=== PATIENT | male | born 1980 | race African-American/Black ===

== ENCOUNTER 2017-07-26 08:53 | Emergency (ER) | payer MEDICAID ==
[~2017-07-26] VITALS: Ht 170.2 cm; Wt 108.9 kg
[~2017-07-26 08:53] MED LIST: IBUPROFEN800 MG ORAL
[2017-07-26] MEDS ORDERED: ABILIFY20 MG ORAL (09:06)
[2017-07-26 09:09] VITALS: BP 127/79
[2017-07-26 09:28] LABS: APPEARANCE,URINE TURBID; BILIRUBIN, URINE NEGATIVE (NEGATIVE); GLUCOSE, URINE (UA) NEGATIVE (NEGATIVE); KETONES,URINE 3+ (NEGATIVE); LEUKOCYTE ESTERASE ,URINE 3+ (NEGATIVE); NITRITE,URINE NEGATIVE (NEGATIVE); PH,URINE 6 (4.5-8.0); PROTEIN,URINE 2+ (NEGATIVE); UROBILINOGEN,URINE 1 MG/DL (0.0-1.0)
[2017-07-26 09:29] LABS: COLOR,URINE YELLOW
--- NOTE | 2017-07-26 09:33 | Emergency Room Report ---
History of Present Illness General Chief Complaint: Male Urogenital Problems Source: Patient Present Illness HPI 36-year-old male no significant past medical history presenting with 2 days of hematuria. Patient states pinkish blood coming from penis, no pain. No dysuria. No fever no chills. He states that this has never happened before he does not take any blood thinners. Denies any recent sexual activity for the last year. Allergies: Coded Allergies: No Known Allergies (Unverified , 07/24/15) Patient History Past Medical History: see triage record Past Surgical History: none Pertinent Family History: none Reviewed Nursing Documentation: PMH: Agreed; PSxH: Agreed Nursing Documentation-PMH Past Medical History: No History, Except For History Of Psychiatric Problem: Yes Review of Systems All Other Systems: negative except mentioned in HPI Physical Exam Vital Signs Date Time Temp Pulse Resp B/P (MAP) Pulse Ox O2 Delivery O2 Flow Rate FiO2 07/26/17 09:03 98.2 108 16 121/76 95 Room Air 98.2 Sp02 EP Interpretation: reviewed, normal General Appearance: normal inspection, well appearing, no apparent distress, alert, GCS 15, non-toxic Head: normocephalic, atraumatic Eyes: bilateral eye normal inspection, bilateral eye PERRL, bilateral eye EOMI ENT: normal ENT inspection, normal pharynx, normal voice, moist mucus membranes Neck: normal inspection, full range of motion, supple Respiratory: normal inspection, lungs clear, normal breath sounds, no respiratory distress, no retraction, no wheezing, speaking full sentences, chest symmetrical Cardiovascular #1: normal inspection, regular rate, rhythm Cardiovascular #2: 2+ radial (R), 2+ radial (L) Gastrointestinal: normal inspection, non tender, soft Genitourinary: no CVA tenderness Musculoskeletal: normal inspection, back normal, normal range of motion, non- tender Neurologic: normal inspection, alert, oriented x3, responsive, motor strength/ tone normal, sensory intact, normal gait, speech normal Psychiatric: normal inspection, judgement/insight normal, memory normal Skin: normal inspection, normal color, no rash, warm/dry, well hydrated, normal turgor Medical Decision Making Diagnostic Impression: Primary Impression: Hematuria Additional Impression: UTI (urinary tract infection) ER Course 36-year-old male with hematuria Well appearing DDX: UTI, STD, patient not having any flank pain or abdominal pain to suggest kidney stones Plan: UA urine culture ER course: Patient has remained stable during ED stay. Nontoxic appearing, has been watching videos on his phone, no active episodes of hematuria and ER Urine not completely positive as UTI however we will discharge with antibiotics and have close PMD follow-up Disposition: Patient is to be discharged to home. Prescriptions given are Keflex Patient is instructed to follow up with their primary care doctor within 5 days. Please note that this Emergency Department Report was dictated using [email or web address]resource development director technology software, occasionally this can lead to erroneous entry secondary to interpretation by the dictation equipment Laboratory Tests Test 07/26/17 09:06 Urine Color Yellow Urine Appearance Turbid Urine pH 6 (4.5-8.0) Urine Specific [place] 1.015 (1.005-1.035) Urine Protein 2+ (NEGATIVE) H Urine Glucose (UA) Negative (NEGATIVE) Urine Ketones 3+ (NEGATIVE) H Urine Occult Blood 4+ (NEGATIVE) H Urine Nitrite Negative (NEGATIVE) Urine Bilirubin Negative (NEGATIVE) Urine Urobilinogen 1 MG/DL (0.0-1.0) H Urine Leukocyte Esterase 3+ (NEGATIVE) H Urine RBC 5-10 /HPF (0 - 0) H Urine WBC 60-80 /HPF (0 - 0) H Urine Squamous Epithelial Cells Occasional /LPF Urine Bacteria Few /HPF (NONE) Last Vital Signs Date Time Temp Pulse Resp B/P (MAP) Pulse Ox O2 Delivery O2 Flow Rate FiO2 07/26/17 09:09 98.2 78 16 127/79 97 Room Air 98.2 Disposition: HOME, SELF-CARE Condition: Improved Scripts Cephalexin* (KEFLEX*) 500 Mg Capsule 500 MG ORAL Q6H for 7 Days, #28 CAP 0 Refills Prov: Amador Olsen M.D. 07/26/17 Amador Olsen M.D. Jul 26, 2017 09:33
[2017-07-26] MEDS ORDERED: KEFLEX500 MG ORAL (09:46)
[2017-07-26 09:50] VITALS: BP 127/79
== END 2017-07-26 09:50 | disposition home or self-care (01) ==
LOC: EMR 09:30
DX: N39.0 Urinary tract infection, site not specified (principal); N31.9 Neuromuscular dysfunction of bladder, unspecified
CPT/HCPCS: 81003; 87086; 87181; 99283

== ENCOUNTER 2017-07-31 19:21 | Emergency (ER) | payer MEDICAID ==
[~2017-07-31] VITALS: Ht 165.1 cm; Wt 108.9 kg
[~2017-07-31 19:21] MED LIST changes: +ABILIFY20 MG ORAL; +KEFLEX500 MG ORAL
[2017-07-31 19:50] VITALS: BP 108/63
--- NOTE | 2017-07-31 19:55 | Emergency Room Report ---
History of Present Illness General Chief Complaint: Male Urogenital Problems Source: Family Member (Alex Knowles) Present Illness HPI 36-year-old male patient presents ER complaining of testicular pain and swelling 3 days. Patient reports previously seen in ER 5 days ago and currently being treated for UTI with Keflex. Patient reports pain is slowly been increasing in severity. Patient denies recent sexual contact, mother reports patient was recently incarcerated and has since been living at home. Denies penile pain or hematuria. Reports testicular swelling. Denies relief of pain with elevation of testicles. Denies rash. denies problems with ejaculation. denies history of trauma. denies nausea, vomiting. Denies fever, chest pain, SOB. (Alex Knowles) Allergies: Coded Allergies: No Known Allergies (Unverified , 07/24/15) Patient History Past Medical History: see triage record Reviewed Nursing Documentation: PMH: Agreed; PSxH: Agreed (Alex Knowles) Review of Systems All Other Systems: negative except mentioned in HPI (Alex Knowles) Physical Exam Vital Signs Date Time Temp Pulse Resp B/P (MAP) Pulse Ox O2 Delivery O2 Flow Rate FiO2 07/31/17 19:47 103.2 119 18 108/63 96 Room Air 103.3 Sp02 EP Interpretation: reviewed, normal General Appearance: well appearing, alert, GCS 15, non-toxic, mild distress Head: normocephalic, atraumatic Eyes: bilateral eye normal inspection, bilateral eye PERRL ENT: hearing grossly normal, normal pharynx, no angioedema, normal voice, TMs + canals normal, uvula midline, moist mucus membranes Neck: full range of motion Respiratory: lungs clear, normal breath sounds, no rhonchi, no respiratory distress, no accessory muscle use, no wheezing, speaking full sentences Cardiovascular #1: regular rate, rhythm, no edema Genitourinary: penis normal - uncircumcised, other - testicular swelling,TTP, negative Prehn sign, no bag of worms feeling Musculoskeletal: back normal, digits/nails normal, gait/station normal, normal range of motion, non-tender Neurologic: alert, oriented x3, responsive, motor strength/tone normal, sensory intact Psychiatric: mood/affect normal Skin: no rash Lymphatic: no adenopathy (Alex Knowles) Medical Decision Making PA Attestation Dr. Doyle is my supervising Physician whom patient management has been discussed with. (Alex Knowles) Diagnostic Impression: Primary Impression: Hydrocele ER Course Pt. presents to the ED c/o testicular pain. Ddx considered but are not limited to testicular torsion, epididymitis, UTI, testicular cyst, varicocele, hydrocele, inguinal hernia. Vital signs: are WNL, pt. is afebrile. Patient is febrile to 102.1 per nurse, will provide medication and continue to monitor. ORDERS: -Scrotal US -UA Morphine and Toradol ER COURSE: Previous UA reviewed , UA results improved since that time. UA shows no nitrites, fewer WBC's than previous visit. Continue with current treatment, followup with primary care doctor, request referral to urology. US testicular shows no torsion, no varicocele, no hernia, positive for hydrocele , per wellfield technician. Informed patient need to followup with urology, may require surgery for treatment in the future. Patient reports feeling better following administration of pain medication. ER precautions, return if worsening of symptoms. Provided patient with Tylenol. Temperature rechecked, 99.6. Patient OK for discharge. DISCHARGE: -RX provided for Tylenol At this time pt. is stable for d/c to home. Patient resting comfortably, in no acute distress, nontoxic appearing, walking without difficulty and drinking water. Will provide printed patient care instructions, and any necessary prescriptions. Care plan and follow up instructions have been discussed with the patient prior to discharge. Followup with PCP in 2-3 days. Followup with urologist. Take medications as directed. Patient questions asked and answered. ER precautions given, patient instructed to return to ER immediately for any new or worsening of symptoms including but not limited to fever, nausea, vomiting, worsening of pain. - Please note that this Emergency Department Report was dictated using [employer] examination clerk technology software, occasionally this can lead to erroneous entry secondary to interpretation by the dictation equipment. Labs Test 07/31/17 20:50 Urine Color Yellow Urine Appearance Clear Urine pH 5 (4.5-8.0) Urine Specific [place] 1.015 (1.005-1.035) Urine Protein 3+ (NEGATIVE) Urine Glucose (UA) Negative (NEGATIVE) Urine Ketones 3+ (NEGATIVE) Urine Occult Blood 2+ (NEGATIVE) Urine Nitrite Negative (NEGATIVE) Urine Bilirubin Negative (NEGATIVE) Urine Urobilinogen Normal MG/DL (0.0-1.0) Urine Leukocyte Esterase 1+ (NEGATIVE) Urine RBC 5-10 /HPF (0 - 0) Urine WBC 2-4 /HPF (0 - 0) Urine Squamous Epithelial Cells None /LPF (NONE/OCC) Urine Bacteria Few /HPF (NONE) (Alex Knowles) CT/MRI/US Diagnostic Results CT/MRI/US Diagnostic Results : Imaging Test Ordered: Testicular US Impression per US wellfield technician: right hydrocele no torsion no hernia right lymph node swollen STATRAD No intratesticular mass lesion or torsion. Small - moderate right hydrocele. (Alex Knowles) Last Vital Signs Date Time Temp Pulse Resp B/P (MAP) Pulse Ox O2 Delivery O2 Flow Rate FiO2 07/31/17 19:47 103.2 119 18 108/63 96 Room Air 103.3 (Alex Knowles) Last Vital Signs Date Time Temp Pulse Resp B/P (MAP) Pulse Ox O2 Delivery O2 Flow Rate FiO2 07/31/17 22:20 99.6 99.6 07/31/17 22:15 104 14 104/69 95 Room Air (Jose Doyle M.D.) Disposition: HOME, SELF-CARE Condition: Stable Scripts Acetaminophen* (TYLENOL EXTRA STRENGTH*) 500 Mg Tablet 500 MG ORAL Q8H PRN for Prn Headache/Temp > 101, #30 TAB 0 Refills Prov: Alex Knowles 07/31/17 Patient Instructions: Hydrocele, Adult Additional Instructions: Followup with primary care provider in 1-3 days. Request referral to urology. Discuss need for surgery at that time. Take medications as directed. Complete full course of abx as instructed at previous visit. Patient questions asked and answered. ER precautions given, patient instructed to return to ER immediately for any new or worsening of symptoms. Alex Knowles Jul 31, 2017 19:55 Jose Doyle M.D. August 02, 2017 16:51
[2017-07-31] MEDS ORDERED: Ketorolac 30mg Inj IM ONE (20:15)
[2017-07-31] MEDS ORDERED: Morphine Sulfate 4mg/ml Inj IM ONE (20:15)
[2017-07-31 21:39] LABS: APPEARANCE,URINE CLEAR; BILIRUBIN, URINE NEGATIVE (NEGATIVE); GLUCOSE, URINE (UA) NEGATIVE (NEGATIVE); KETONES,URINE 3+ (NEGATIVE); LEUKOCYTE ESTERASE ,URINE 1+ (NEGATIVE); NITRITE,URINE NEGATIVE (NEGATIVE); PH,URINE 5 (4.5-8.0); PROTEIN,URINE 3+ (NEGATIVE); UROBILINOGEN,URINE NORMAL MG/DL (0.0-1.0)
[2017-07-31 21:42] LABS: COLOR,URINE YELLOW
[2017-07-31] MEDS ORDERED: TYLENOL EXTRA500 MG ORAL (21:58)
[2017-07-31 22:09] VITALS: BP 104/69
[2017-07-31 22:15] VITALS: BP 104/69
[2017-07-31] MEDS ORDERED: Acetaminophen 500mg (ES) tab ORAL ONE (22:15)
--- NOTE | 2017-08-01 09:38 | Diagnostic Imaging Report ---
Indication:Scrotal pain Technique: Real time grayscale and duplex Doppler imaging of the scrotum performed. Comparison: None Findings: The size, contour, and echogenicitiy of the testis appear normal bilaterally. There is no testicular mass or evidence of torsion. There is good doppler evidence of blood flow within both testes. Epididimi are unremarkable. There is a small right hydrocele. Impression: Small right hydrocele. No evidence of testicular mass or torsion
== END 2017-07-31 22:15 | disposition home or self-care (01) ==
LOC: EMR 20:22
DX: N43.3 Hydrocele, unspecified (principal)
CPT/HCPCS: 76870; 81003; 96372; 99284; J1885; J2270

== ENCOUNTER 2017-08-16 23:09 | Inpatient (IN) | payer MEDICAID ==
[~2017-08-16] VITALS: Ht 167.6 cm; Wt 103.9 kg
[~2017-08-16 23:09] MED LIST changes: +TYLENOL EXTRA500 MG ORAL
[2017-08-16 23:30] VITALS: BP 110/64
[2017-08-17] MEDS ORDERED: Piperacillin/Tazobactam 3.375 GM in NS 110 ML IVPB ONE ×2
[2017-08-17] MEDS ORDERED: Vancomycin 1 GM in NS 275 ML IVPB ONE ×2
[2017-08-17] MEDS ORDERED: Morphine Sulfate 4mg/ml Inj IVP ONE
[2017-08-17 01:17] VITALS: BP 115/70
--- NOTE | 2017-08-17 01:23 | Emergency Room Report ---
History of Present Illness General Chief Complaint: Male Urogenital Problems Source: Patient Present Illness HPI 36-year-old male complains of pain in drainage from right scrotum Currently bothering him for 2 days He had this problem 2-3 times in the past well He is no longer antibiotics He reports it's not his testicle hurts is just the scrotum the pain is severe and nnonradiating Denies fevers Allergies: Coded Allergies: No Known Allergies (Unverified , 07/24/15) Patient History Past Medical History: see triage record Reviewed Nursing Documentation: PMH: Agreed; PSxH: Agreed Review of Systems All Other Systems: negative except mentioned in HPI Physical Exam Vital Signs Date Time Temp Pulse Resp B/P (MAP) Pulse Ox O2 Delivery O2 Flow Rate FiO2 08/16/17 23:12 98.4 101 18 122/77 98 Room Air 98.4 Sp02 EP Interpretation: reviewed, normal General Appearance: no apparent distress, alert, non-toxic Head: normocephalic Eyes: bilateral eye normal inspection, bilateral eye PERRL, bilateral eye EOMI ENT: normal ENT inspection, hearing grossly normal, normal pharynx, no angioedema, normal voice, moist mucus membranes Neck: normal inspection, full range of motion, supple, supple/symm/no masses Respiratory: chest non-tender, lungs clear, normal breath sounds, chest symmetrical, palpation of chest normal Cardiovascular #1: normal peripheral pulses, regular rate, rhythm Cardiovascular #2: 2+ radial (R), 2+ radial (L) Gastrointestinal: normal inspection, non tender, soft, no mass, no guarding, no rebound Rectal: deferred Genitourinary: normal inspection, no CVA tenderness, scrotum normal - Right scrotum superior portion erythema warmth tenderness and open draining purulence Musculoskeletal: back normal, gait/station normal, normal range of motion, non- tender, no calf tenderness Neurologic: alert, responsive, ground host/hostess III-XII nml as tested, motor strength/tone normal, sensory intact, speech normal Psychiatric: judgement/insight normal, memory normal, mood/affect normal Skin: normal color, no rash, warm/dry, normal turgor Lymphatic: no adenopathy Medical Decision Making Diagnostic Impression: Primary Impression: Cellulitis, scrotum ER Course Patient with scrotal cellulitis and open wound, I do not suspect Aldair's gangrene, as there is no crepitus, I also do not suspect closed abscess as there is no open area that is draining purulence versus granulation tissue Patient will be admitted, is already started antibiotics Last Vital Signs Date Time Temp Pulse Resp B/P (MAP) Pulse Ox O2 Delivery O2 Flow Rate FiO2 08/17/17 01:17 98.0 90 16 115/70 98 Room Air 98.0 Disposition: ADMITTED INPATIENT Condition: Stable Signed Out To: Dr. Maza Referrals: NOT CHOSEN IPA/,REFERRING (PCP) ANIA ORTEGA M.D August 17, 2017 01:23
[2017-08-17 01:27] LABS: BASOPHILS % (AUTO) 0.9 % (0.0-2.0); EOSINOPHILS % (AUTO) 1.2 % (0.0-3.0); HEMOGLOBIN 13.8 G/DL (14.2-18.0); MEAN CORPUSCULAR VOLUME 89 FL (80-99); MONOCYTES % (AUTO) 8.9 % (1.0-10.0); NEUTROPHILS % (AUTO) 75.1 % (45.0-75.0); PLATELET COUNT 291 K/UL (150-450); RED CELL DISTRIBUTION WIDTH 12.3 % (11.6-14.8); WHITE BLOOD COUNT 12.7 K/UL (4.8-10.8)
[2017-08-17 01:32] LABS: ANION GAP 10 mmol/L (5-15); BLOOD UREA NITROGEN 17 mg/dL (7-18); CARBON DIOXIDE 25 MMOL/L (21-32); CHLORIDE 105 MMOL/L (98-107); CREATININE 1.3 MG/DL (0.55-1.30); POTASSIUM 4.2 MMOL/L (3.5-5.1); SODIUM 140 MMOL/L (136-145)
[2017-08-17 02:10] VITALS: BP 110/68
[2017-08-17 03:46] VITALS: BP 119/69
[2017-08-17] MEDS: Piperacillin/Tazobactam 3.375 GM in NS 110 ML IVPB SCH ×3 (06:01→23:59)
[2017-08-17] MEDS: Morphine Sulfate 4mg/ml Inj IVP PRN ×5 (06:45→22:29)
[2017-08-17 07:47] LABS: BASOPHILS % (AUTO) 0.4 % (0.0-2.0); EOSINOPHILS % (AUTO) 1.6 % (0.0-3.0); HEMATOCRIT 40.9 % (42.0-52.0); HEMOGLOBIN 13.7 G/DL (14.2-18.0); LYMPHOCYTES % (AUTO) 18.5 % (20.0-45.0); MEAN CORPUSCULAR VOLUME 90 FL (80-99); MONOCYTES % (AUTO) 8.5 % (1.0-10.0); PLATELET COUNT 268 K/UL (150-450); RED BLOOD COUNT 4.56 M/UL (4.70-6.10); RED CELL DISTRIBUTION WIDTH 12.6 % (11.6-14.8); WHITE BLOOD COUNT 9.3 K/UL (4.8-10.8)
[2017-08-17 08:08] VITALS: BP 114/65
[2017-08-17 08:25] LABS: ANION GAP 12 mmol/L (5-15); BLOOD UREA NITROGEN 17 mg/dL (7-18); CALCIUM 8.9 MG/DL (8.5-10.1); CARBON DIOXIDE 22 MMOL/L (21-32); CHLORIDE 107 MMOL/L (98-107); CREATININE 1.2 MG/DL (0.55-1.30); POTASSIUM 3.7 MMOL/L (3.5-5.1); SODIUM 141 MMOL/L (136-145)
[2017-08-17 11:29] VITALS: BP 118/68
[2017-08-17] MEDS: Vancomycin 1gm/D5W 275ml IVPB SCH ×2 (13:20)
--- NOTE | 2017-08-17 14:10 | Diagnostic Imaging Report ---
Indications: With scrotal pain, scrotal abscess Technique: Grayscale and duplex images of the scrotum Comparison: 07/31/2017 Findings: There is marked scrotal wall thickening. The right testicle measures cm in length ill-defined area of mixed echogenicity within the right hemiscrotum measures 4.5 x 2.5 cm. Is unclear whether this represents a testicle largest material within the scrotum. It does demonstrate some arterial flow but does not appear to be hyperemic. The spermatic cord cannot be assessed. The epididymis cannot be identified. These findings are new since the previous exam Small left varicocele. Previously demonstrated hydrocele is not evident The left testicle measures 3.6 cm in length. It demonstrates normal echogenicity and normal Doppler flow. Normal epididymis. There is possible small left varicocele Impression: Marked scrotal wall thickening. Could be on the basis of scrotal cellulitis, versus edema related to hemodynamic causes. Correlate with clinical findings Markedly abnormal right hemiscrotum, with normal testicle is not demonstrated. Echogenicity material within the right hemiscrotum likely represents testicular tissue, but but markedly abnormal appearance could indicate severe inflammation or trauma. Necrosis secondary to torsion also a possibility, although the presence of some Doppler flow makes this less likely. Tumor as etiology is much less likely given normal findings 17 days earlier Findings discussed by phone with Dr. Gray at the time of interpretation
--- NOTE | 2017-08-17 14:12 | Infectious Diseases Prog Note ---
Assessment/Plan Assessment/Plan Full consult to follow: A) 1) right scrotal abscess/cellulitis, sepsis, leukocytosis, sirs 2) allergies - linda sauce, nkda 3) pmh negative o/w 4) sh- + smoker, fh-nc, mar noted 5) d/w RN P) 1) vancomycin and zosyn 2) check labs, cultures 3) surgery evaluation 4) orders entered and noted 5) thank you Subjective Allergies: Uncoded Allergies: linda sauce (Allergy, Intermediate, hives, 08/17/17) Objective Vital Signs Last 24 Hour Vital Signs Date Time Temp Pulse Resp B/P (MAP) Pulse Ox O2 Delivery O2 Flow Rate FiO2 08/17/17 11:29 98.0 95 20 118/68 97 98.0 08/17/17 08:08 97.5 93 20 114/65 97 97.5 08/17/17 03:46 96.6 91 18 119/69 98 96.6 08/17/17 03:46 Room Air 08/17/17 02:10 97.9 88 18 110/68 99 Room Air 97.9 08/17/17 02:00 98.0 90 16 115/70 98 Room Air 98.0 08/17/17 01:32 98.0 08/17/17 01:17 98.0 90 16 115/70 98 Room Air 98.0 08/17/17 00:31 97.9 08/16/17 23:30 97.9 94 16 110/64 98 Room Air 97.9 08/16/17 23:12 98.4 101 18 122/77 98 Room Air 98.4 Height (Feet): 5 Height (Inches): 6.00 Weight (Pounds): 229 Laboratory Tests Test 08/17/17 00:15 08/17/17 06:40 White Blood Count 12.7 K/UL (4.8-10.8) H 9.3 K/UL (4.8-10.8) Red Blood Count 4.60 M/UL (4.70-6.10) L 4.56 M/UL (4.70-6.10) L Hemoglobin 13.8 G/DL (14.2-18.0) L 13.7 G/DL (14.2-18.0) L Hematocrit 41.0 % (42.0-52.0) L 40.9 % (42.0-52.0) L Mean Corpuscular Volume 89 FL (80-99) 90 FL (80-99) Mean Corpuscular Hemoglobin 29.9 PG (27.0-31.0) 30.0 PG (27.0-31.0) Mean Corpuscular Hemoglobin Concent 33.6 G/DL (32.0-36.0) 33.4 G/DL (32.0-36.0) Red Cell Distribution Width 12.3 % (11.6-14.8) 12.6 % (11.6-14.8) Platelet Count 291 K/UL (150-450) 268 K/UL (150-450) Mean Platelet Volume 6.7 FL (6.5-10.1) 6.4 FL (6.5-10.1) L Neutrophils (%) (Auto) 75.1 % (45.0-75.0) H 71.0 % (45.0-75.0) Lymphocytes (%) (Auto) 14.0 % (20.0-45.0) L 18.5 % (20.0-45.0) L Monocytes (%) (Auto) 8.9 % (1.0-10.0) 8.5 % (1.0-10.0) Eosinophils (%) (Auto) 1.2 % (0.0-3.0) 1.6 % (0.0-3.0) Basophils (%) (Auto) 0.9 % (0.0-2.0) 0.4 % (0.0-2.0) Sodium Level 140 MMOL/L (136-145) 141 MMOL/L (136-145) Potassium Level 4.2 MMOL/L (3.5-5.1) 3.7 MMOL/L (3.5-5.1) Chloride Level 105 MMOL/L (98-107) 107 MMOL/L (98-107) Carbon Dioxide Level 25 MMOL/L (21-32) 22 MMOL/L (21-32) Anion Gap 10 mmol/L (5-15) 12 mmol/L (5-15) Blood Urea Nitrogen 17 mg/dL (7-18) 17 mg/dL (7-18) Creatinine 1.3 MG/DL (0.55-1.30) 1.2 MG/DL (0.55-1.30) Estimat Glomerular Filtration Rate > 60 mL/min (>60) > 60 mL/min (>60) Glucose Level 95 MG/DL (74-106) 98 MG/DL (74-106) Calcium Level 9.0 MG/DL (8.5-10.1) 8.9 MG/DL (8.5-10.1) Current Medications Medications (Trade) Dose Ordered Sig/Shoaib Route PRN Reason Start Time Stop Time Status Last Admin Dose Admin Acetaminophen (Tylenol) 650 mg Q6H PRN ORAL Mild Pain/Temp > 100.5 08/17/17 02:45 09/16/17 02:44 Morphine Sulfate (Morphine Sulfate) 2 mg Q4H PRN IVP Severe Pain (Pain Scale 7-10) 08/17/17 02:45 08/24/17 02:44 08/17/17 10:27 Piperacillin Sod/ Tazobactam Sod 3.375 gm/Sodium Chloride 110 ml @ 27.5 mls/hr Q8HR IVPB 08/17/17 06:00 08/24/17 05:59 08/17/17 06:01 Sodium Chloride 1,000 ml @ 75 mls/hr [id number] IV 08/17/17 03:00 09/16/17 02:59 08/17/17 02:54 Vancomycin HCl (Vanco rx to dose) 1 ea DAILY PRN MISC Per rx protocol 08/17/17 02:45 09/16/17 02:44 Vancomycin HCl 1 gm/Dextrose 275 ml @ 183.708 mls/hr Q12H IVPB 08/17/17 13:00 08/22/17 12:59 08/17/17 13:20 APRIL HERNÁNDEZ August 17, 2017 14:12
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
[2017-08-17 15:46] VITALS: BP 131/68
--- NOTE | 2017-08-17 17:45 | Consultation ---
DATE OF CONSULTATION: 08/17/2017 INFECTIOUS DISEASE CONSULTATION CONSULTING PHYSICIAN: Hoa Vogel M.D. ATTENDING/REFERRING PHYSICIAN: Elham Gray M.D. REASON FOR CONSULTATION: Right scrotal abscess with cellulitis. CHIEF COMPLAINT: The patient's chief complaint in the hospital is right scrotal cellulitis and abscess and infected wound, it looks like. HISTORY OF PRESENT ILLNESS: This is a 36-year-old male, who comes in to [facility]. He said that over the last day, but now it is unclear if it is longer that he had pain in the right scrotal area. Clinically, the patient has a draining wound, which likely is an abscess. He has cellulitis also, but also could have an infected wound. The patient denies any urethral discharge. Infectious Disease consultation is requested. The patient will be placed on vancomycin and Zosyn for polymicrobial coverage including Staph aureus and gram negatives. Case was discussed with Niurka Arzate, nurse practitioner for Dr. Gray and surgery evaluation will be obtained. Cultures pending at this time. MAR was noted. Orders were noted. Notes and records were reviewed. The patient also looks like he could have sepsis with an elevated white count and SIRS criteria and tachycardia. PAST MEDICAL HISTORY: Otherwise negative. No history of diabetes or hypertension. MEDICATIONS: Prior to admission, he is on cephalexin, , acetaminophen, and ibuprofen. Upon reviewing the MAR, he is on the following medications. He is on vancomycin, Zosyn, sodium chloride, acetaminophen, and morphine. ALLERGIES: Teriyaki sauce. No known drug allergies. SOCIAL HISTORY: Positive for smoking. No alcohol or drug abuse. FAMILY HISTORY: Noncontributory. REVIEW OF SYSTEMS: CONSTITUTIONAL: No fever, chills, night sweats, weight loss mentioned. HEAD AND NECK: No head pain or neck pain. No thrush, dysphagia, or sinus tenderness. No change in vision. CARDIAC: No chest pain or palpitations. PULMONARY: No shortness of breath, hemoptysis, or secretions. GASTROINTESTINAL: No nausea, vomiting, or diarrhea. GENITOURINARY: No Islas. PULMONARY: No congestion or shortness of breath. SKIN: No rash. NEUROLOGIC: No seizures mentioned. GENITOURINARY: He has had this right scrotal pain, swelling, and draining wound. The patient also denies any dysuria or urethral discharge. PHYSICAL EXAMINATION: VITAL SIGNS: Temperature is 98.0, pulse rate is 95, respiratory rate 20, blood pressure 118/68, and saturation 97%. Heart rate has been as high as 101. GENERAL: Alert and responsive, in no acute distress. HEAD AND NECK: Oral exam, no thrush. Eye exam, no icterus. Neck is supple. No JVD. Normocephalic. No facial droop. No neck stiffness. LUNGS: Clear bilaterally. No rhonchi or rales. HEART: Regular. No obvious gallop or murmur. ABDOMEN: Soft. Positive bowel sounds. Nontender. NEUROLOGIC: He is alert, oriented, and responsive. Intact and nonfocal. SKIN: No rash. MUSCULOSKELETAL: No effusion. Legs are without cellulitis. PERIPHERAL VASCULAR: No gangrene. GENITOURINARY: No Islas. No CVA tenderness. LINE SITES: Without phlebitis. GENITOURINARY: Right scrotal area has a draining wound what looks like he is expressing pus from the abscess with secondary to cellulitis and tenderness on palpation. LABORATORY DATA: Laboratory data is as follows. White count on admission 12.7, white count now is 9.3, and hemoglobin 13.7. Creatinine is normal at 1.2. Wound culture on the right scrotal area is pending. Testicular ultrasound showed marked scrotal wall thickening consistent with cellulitis or edema of some type. Abnormal right hemiscrotum with normal testicle not demonstrated. It could be trauma or severe inflammation. Necrosis secondary to torsion is also a possibility. ASSESSMENT AND PLAN: 1. The patient has what looks like right scrotal abscess and cellulitis with sepsis, elevated white count, and systemic inflammatory response syndrome criteria. Ultrasound shows testicular abnormality. It is unclear if this patient also has underlying epididymitis or orchitis. Because of his age, I would also add doxycycline for chlamydia coverage. The Zosyn should have gonorrhea coverage. We will continue Zosyn, vancomycin, and doxycycline and check culture of the wound. I would also consider Urology evaluation to evaluate for any surgical debridement if needed. It clinically does not seem Aldair's gangrene at this time. The patient is nontoxic and clinically does not seem to be Aldair's gangrene. There is no necrotic tissue seen. Continue Zosyn, doxycycline, and vancomycin. Check cultures. Urology evaluation will be obtained. Case was discussed with Niurka Arzate, nurse practitioner for Dr. Gray. 2. No significant past medical history such as diabetes, hypertension, or hyperlipidemia. 3. Allergies to teriyaki sauce. 4. Social history is positive for smoking. 5. Family history is noncontributory. 6. MAR was noted. 7. Case was discussed with RN. 8. Case was discussed with the patient. 9. Notes and records were noted. 10. Continue treatment per primary consultants. Hoa Vogel M.D. DR: TEJAL JOB#: [id number] CC:
[2017-08-18] VITALS: BP 118/62
[2017-08-18] MEDS: Morphine Sulfate 4mg/ml Inj IVP PRN ×5 (02:29→20:34)
[2017-08-18] MEDS: Vancomycin 1gm/D5W 275ml IVPB SCH ×2 (02:56)
[2017-08-18 04:00] VITALS: BP 122/63
[2017-08-18] MEDS: Piperacillin/Tazobactam 3.375 GM in NS 110 ML IVPB SCH ×3 (06:52→22:33)
[2017-08-18 08:00] VITALS: BP 100/67
[2017-08-18 08:10] LABS: BASOPHILS % (AUTO) 0.5 % (0.0-2.0); EOSINOPHILS % (AUTO) 2.8 % (0.0-3.0); HEMATOCRIT 42.7 % (42.0-52.0); HEMOGLOBIN 14.2 G/DL (14.2-18.0); LYMPHOCYTES % (AUTO) 26.4 % (20.0-45.0); MEAN CORPUSCULAR VOLUME 89 FL (80-99); MONOCYTES % (AUTO) 13.5 % (1.0-10.0); NEUTROPHILS % (AUTO) 56.9 % (45.0-75.0); PLATELET COUNT 251 K/UL (150-450); RED BLOOD COUNT 4.77 M/UL (4.70-6.10); RED CELL DISTRIBUTION WIDTH 12.4 % (11.6-14.8); WHITE BLOOD COUNT 7.3 K/UL (4.8-10.8)
[2017-08-18 08:30] LABS: ANION GAP 8 mmol/L (5-15); BLOOD UREA NITROGEN 13 mg/dL (7-18); CALCIUM 8.7 MG/DL (8.5-10.1); CARBON DIOXIDE 25 MMOL/L (21-32); CHLORIDE 106 MMOL/L (98-107); CREATININE 1.1 MG/DL (0.55-1.30); SODIUM 139 MMOL/L (136-145)
[2017-08-18 12:00] VITALS: BP 105/63
--- NOTE | 2017-08-18 14:41 | Infectious Diseases Prog Note ---
Assessment/Plan Assessment/Plan A) 1) right scrotal abscess/cellulitis, ? epididymitis/orchaitis, ? right testicular abscess, sepsis, leukocytosis, sirs - wound culture with gram negative growing so far - clinically about the same - leukocytosis and fevers improved 2) allergies - teriyaki sauce, nkda 3) pmh negative o/w 4) sh- + smoker, fh-nc, mar noted 5) d/w RN P) 1) vancomycin and zosyn 2) check labs, check final wound culture 3) surgery evaluation noted, urology evaluation pending, may need debridement 4) orders entered and noted 5) will f/u, d/w general surgery Subjective Constitutional: Denies: fever HEENT: Denies: congestion Respiratory: Denies: shortness of breath Cardiovascular: Denies: chest pain Gastrointestinal/Abdominal: Denies: nausea Genitourinary: Reports: other - + right scrotal pain; Denies: dysuria, hematuria Neurologic: Denies: headache Psychiatric: Denies: depression Skin: Denies: rash Hematologic: Denies: bleeding Musculoskeletal: Denies: pain Allergies: Uncoded Allergies: teriyaki sauce (Allergy, Intermediate, hives, 08/17/17) Objective Vital Signs Last 24 Hour Vital Signs Date Time Temp Pulse Resp B/P (MAP) Pulse Ox O2 Delivery O2 Flow Rate FiO2 08/18/17 12:00 98.0 84 20 105/63 98 98.0 08/18/17 11:20 97.4 08/18/17 10:50 97.4 08/18/17 08:00 97.4 72 20 100/67 98 97.4 08/18/17 04:00 97.7 75 20 122/63 98 97.7 08/18/17 00:00 98.1 74 20 118/62 100 98.1 08/17/17 20:00 22 Room Air 08/17/17 15:46 97.5 87 20 131/68 99 97.5 Height (Feet): 5 Height (Inches): 6.00 Weight (Pounds): 229 General Appearance: no acute distress HEENT: normocephalic, atraumatic, anicteric, mucous membranes moist, EOMI, pharynx normal, supple, no JVD Respiratory/Chest: lungs clear, normal breath sounds, no respiratory distress, no accessory muscle use Cardiovascular: normal rate, regular rhythm, no gallop/murmur, no JVD Abdomen: normal bowel sounds, soft, non tender, no organomegaly, non distended Genitourinary: other - + right scrotal swelling, pain and drainage Extremities: no cyanosis Skin: no rash Neurologic/Psychiatric: learning strategist II-XII grossly normal, alert, oriented x 3, responsive Lymphatic: no neck adenopathy Musculoskeletal: no effusion Objective Testicular US - Impression: Marked scrotal wall thickening. Could be on the basis of scrotal cellulitis, versus edema related to hemodynamic causes. Correlate with clinical findings Markedly abnormal right hemiscrotum, with normal testicle is not demonstrated. Echogenicity material within the right hemiscrotum likely represents testicular tissue, but but markedly abnormal appearance could indicate severe inflammation or trauma. Necrosis secondary to torsion also a possibility, although the presence of some Doppler flow makes this less likely. Tumor as etiology is much less likely given normal findings 17 days earlier Microbiology Date/Time Source Procedure Growth Status 08/17/17 03:00 Other Gram Stain - Final Resulted 08/17/17 03:00 Wound Culture - Preliminary Gram Negative Bacillus 1 Resulted Laboratory Tests Test 08/18/17 06:50 08/18/17 12:15 White Blood Count 7.3 K/UL (4.8-10.8) Red Blood Count 4.77 M/UL (4.70-6.10) Hemoglobin 14.2 G/DL (14.2-18.0) Hematocrit 42.7 % (42.0-52.0) Mean Corpuscular Volume 89 FL (80-99) Mean Corpuscular Hemoglobin 29.8 PG (27.0-31.0) Mean Corpuscular Hemoglobin Concent 33.3 G/DL (32.0-36.0) Red Cell Distribution Width 12.4 % (11.6-14.8) Platelet Count 251 K/UL (150-450) Mean Platelet Volume 6.6 FL (6.5-10.1) Neutrophils (%) (Auto) 56.9 % (45.0-75.0) Lymphocytes (%) (Auto) 26.4 % (20.0-45.0) Monocytes (%) (Auto) 13.5 % (1.0-10.0) H Eosinophils (%) (Auto) 2.8 % (0.0-3.0) Basophils (%) (Auto) 0.5 % (0.0-2.0) Sodium Level 139 MMOL/L (136-145) Potassium Level 4.0 MMOL/L (3.5-5.1) Chloride Level 106 MMOL/L (98-107) Carbon Dioxide Level 25 MMOL/L (21-32) Anion Gap 8 mmol/L (5-15) Blood Urea Nitrogen 13 mg/dL (7-18) Creatinine 1.1 MG/DL (0.55-1.30) Estimat Glomerular Filtration Rate > 60 mL/min (>60) Glucose Level 88 MG/DL (74-106) Calcium Level 8.7 MG/DL (8.5-10.1) Vancomycin Level Trough 10.9 ug/mL (5.0-12.0) Current Medications Medications (Trade) Dose Ordered Sig/Shoaib Route PRN Reason Start Time Stop Time Status Last Admin Dose Admin Acetaminophen (Tylenol) 650 mg Q6H PRN ORAL Mild Pain/Temp > 100.5 08/17/17 02:45 09/16/17 02:44 08/18/17 03:51 Doxycycline Hyclate 100 mg/ Dextrose 100 ml @ 100 mls/hr Q12HR IVPB 08/17/17 21:00 08/24/17 20:59 08/18/17 10:53 Morphine Sulfate (Morphine Sulfate) 2 mg Q4H PRN IVP Severe Pain (Pain Scale 7-10) 08/17/17 02:45 08/24/17 02:44 08/18/17 10:50 Piperacillin Sod/ Tazobactam Sod 3.375 gm/Sodium Chloride 110 ml @ 27.5 mls/hr Q8HR IVPB 08/17/17 06:00 08/24/17 05:59 08/18/17 06:52 Sodium Chloride 1,000 ml @ 75 mls/hr [id number] IV 08/17/17 03:00 09/16/17 02:59 08/18/17 06:52 Vancomycin HCl (Vanco rx to dose) 1 ea DAILY PRN MISC Per rx protocol 08/17/17 02:45 09/16/17 02:44 Vancomycin HCl/ Dextrose 250 ml @ 166.667 mls/hr Q12H IVPB 08/18/17 15:00 08/23/17 14:59 APRIL HERNÁNDEZ August 18, 2017 14:41
[2017-08-18] MEDS ORDERED: Tubing IV Secondary IV ONE ×2 (15:12→15:18)
--- NOTE | 2017-08-18 15:46 | General Progress Note ---
Assessment/Plan Problem List: (1) Sepsis ICD Codes: A41.9 - Sepsis, unspecified organism SNOMED: 25904606 (2) Scrotal abscess ICD Codes: N49.2 - Inflammatory disorders of scrotum SNOMED: 48480217 Status: stable, progressing Assessment/Plan ID (Dr. Umana), general surgery (Dr. Arenas), urology (Dr. So) consulted. appreciate rec's No surgical interventions at this time. IV vancomycin and zosyn Trend CBC. 11 --> 7 F/u blood cx, urine cx, wound cx Testicular ultrasound done on 08/17 showing scrotal cellulitis with abnormal right hemiscrotum. necrosis 2/2 torsion a possibility but doppler flow presence makes it less likely. Tumor as etiology less likely given normal findings on testicular ultrasound 2 weeks prior. Pain control and supportive care IVF DVT Prophylaxis: SCD Code Status: Full Hospital Classification Declaration: Based on this initial evaluation, and depending on the patient's clinical course, I anticipate that this patient will require hospitalization for 3-4 days for scrotal abscess and close respiratory/ hemodynamic monitoring. Disposition: Once the patient is stable to leave the hospital, I anticipate the patient will likely be discharged to the following environment: home with HH I spent 33 minutes on this patient's case, and 19 minutes were dedicated to counseling and/or care coordination. Discussed with patient/family, nursing staff, SW/CM, ID, general surgery, and urology regarding clinical status, treatment course, and disposition planning. Time of note may not reflect time of encounter. Subjective Date patient seen: August 18, 2017 Time patient seen: 15:43 Allergies: Uncoded Allergies: teriyaki sauce (Allergy, Intermediate, hives, 08/17/17) Subjective - doing better today - WBC trending down - AF, HDS - reports pain to scrotal region improved - seen by ID and general surgery Objective Last 24 Hour Vital Signs Date Time Temp Pulse Resp B/P (MAP) Pulse Ox O2 Delivery O2 Flow Rate FiO2 08/18/17 12:00 98.0 84 20 105/63 98 98.0 08/18/17 11:20 97.4 08/18/17 10:50 97.4 08/18/17 08:00 97.4 72 20 100/67 98 97.4 08/18/17 04:00 97.7 75 20 122/63 98 97.7 08/18/17 00:00 98.1 74 20 118/62 100 98.1 08/17/17 20:00 22 Room Air 08/17/17 15:46 97.5 87 20 131/68 99 97.5 Intake and Output 08/17/17 08/18/17 19:00 07:00 Intake Total 802.500 ml 893.500 ml Output Total 1000 ml Balance -197.500 ml 893.500 ml Intake Oral 240 ml IV Total 562.500 ml 893.500 ml Output Urine Total 1000 ml # Voids 2 Laboratory Tests 08/18/17 06:50: White Blood Count 7.3, Red Blood Count 4.77, Hemoglobin 14.2, Hematocrit 42.7, Mean Corpuscular Volume 89, Mean Corpuscular Hemoglobin 29.8, Mean Corpuscular Hemoglobin Concent 33.3, Red Cell Distribution Width 12.4, Platelet Count 251, Mean Platelet Volume 6.6, Neutrophils (%) (Auto) 56.9, Lymphocytes (%) (Auto) 26.4, Monocytes (%) (Auto) 13.5H, Eosinophils (%) (Auto) 2.8, Basophils (%) ( Auto) 0.5, Sodium Level 139, Potassium Level 4.0, Chloride Level 106, Carbon Dioxide Level 25, Anion Gap 8, Blood Urea Nitrogen 13, Creatinine 1.1, Estimat Glomerular Filtration Rate > 60, Glucose Level 88, Calcium Level 8.7 08/18/17 12:15: Vancomycin Level Trough 10.9 Height (Feet): 5 Height (Inches): 6.00 Weight (Pounds): 229 General Appearance: no apparent distress, alert EENT: PERRL/EOMI, normal ENT inspection Neck: non-tender, normal alignment Cardiovascular: normal peripheral pulses, normal rate, regular rhythm Respiratory/Chest: chest wall non-tender, lungs clear, normal breath sounds Abdomen: normal bowel sounds, non tender, soft, other - surgical incisions c/d/ i Genitourinary/Rectal: other - right scrotal tender to touch, softer than yesterday, still with pus drainage Extremities: normal range of motion, non-tender Neurologic: bookkeeper assistant II-XII grossly normal, no motor/sensory deficits, alert, oriented x 3 Marilia Tejada NP August 18, 2017 15:46
[2017-08-18 16:00] VITALS: BP 114/60
--- NOTE | 2017-08-18 16:01 | General Progress Note ---
Progress Note Progress Note Surgery: doing better today. no n/v/f/c. comfortable. leukocytosis improved. edema in scrotum improved. still draining. -urology eval -no acute general surgery planned. -cont x Alphonse Arenas August 18, 2017 16:01
[2017-08-18] MEDS: Vancomycin 1250mg/D5W 250ml IVPB SCH (16:15)
[2017-08-18 20:21] VITALS: BP 125/69
[2017-08-19 00:02] VITALS: BP 118/70
[2017-08-19] MEDS: Morphine Sulfate 4mg/ml Inj IVP PRN ×2 (01:34→06:12)
[2017-08-19] MEDS: Vancomycin 1250mg/D5W 250ml IVPB SCH (03:10)
[2017-08-19 04:00] VITALS: BP 130/78
[2017-08-19] MEDS: Piperacillin/Tazobactam 3.375 GM in NS 110 ML IVPB SCH (06:09)
[2017-08-19 07:49] LABS: BASOPHILS % (AUTO) 0.9 % (0.0-2.0); EOSINOPHILS % (AUTO) 3.3 % (0.0-3.0); HEMOGLOBIN 14.4 G/DL (14.2-18.0); LYMPHOCYTES % (AUTO) 29.3 % (20.0-45.0); MEAN CORPUSCULAR VOLUME 89 FL (80-99); MONOCYTES % (AUTO) 13.8 % (1.0-10.0); NEUTROPHILS % (AUTO) 52.7 % (45.0-75.0); PLATELET COUNT 296 K/UL (150-450); RED BLOOD COUNT 4.73 M/UL (4.70-6.10); RED CELL DISTRIBUTION WIDTH 12.3 % (11.6-14.8)
[2017-08-19 08:00] VITALS: BP 110/60
[2017-08-19 08:04] LABS: ANION GAP 9 mmol/L (5-15); BLOOD UREA NITROGEN 14 mg/dL (7-18); CALCIUM 9.2 MG/DL (8.5-10.1); CARBON DIOXIDE 24 MMOL/L (21-32); CHLORIDE 104 MMOL/L (98-107); CREATININE 1.2 MG/DL (0.55-1.30); POTASSIUM 3.9 MMOL/L (3.5-5.1); SODIUM 137 MMOL/L (136-145)
--- NOTE | 2017-08-19 10:20 | Consultation ---
History of Present Illness General Date patient seen: August 19, 2017 Time patient seen: 10:17 Chief Complaint: Male Urogenital Problems Reason for Consultation: scrotal abscess Present Illness HPI 36 yo male with right scrotal pain and spontaneous drainage from skin. Admitted for abx. Patient has felt progressively better over the past 2 days. Wound continues to drain. testicle less tender. Was evaluated about 15 days ago for similar complaint and found to have hydrocele on ultrasound. Allergies: Uncoded Allergies: teriyaki sauce (Allergy, Intermediate, hives, 08/17/17) Medication History Scheduled Aripiprazole* (Abilify*), 30 MG ORAL DAILY, (Reported) Cephalexin* (Keflex*), 500 MG ORAL Q6H Ibuprofen* (Motrin*), 800 MG ORAL Q6H Scheduled PRN Acetaminophen* (Tylenol Extra Strength*), 500 MG ORAL Q8H PRN for Prn Headache/ Temp > 101 Patient History History Provided By: Patient Healthcare decision maker Resuscitation status Advanced Directive on File Past Medical/Surgical History Past Medical/Surgical History: (1) Scrotal abscess Review of Systems All Other Systems: negative except mentioned in HPI Physical Exam General Appearance: alert HEENT: atraumatic Cardiovascular/Chest: normal rate Abdomen: non tender, soft Genitourinary/Rectal: other - draining right scrotal wound. testicle indurated but not significantly tender. Last 24 Hour Vital Signs Date Time Temp Pulse Resp B/P (MAP) Pulse Ox O2 Delivery O2 Flow Rate FiO2 08/19/17 08:00 97.8 80 20 110/60 99 97.8 08/19/17 04:00 97.2 77 19 130/78 96 97.2 08/19/17 00:02 97.5 80 17 118/70 96 97.5 08/18/17 20:21 97.9 84 18 125/69 99 97.9 08/18/17 16:44 98.0 08/18/17 16:14 98.0 08/18/17 16:00 98.0 67 19 114/60 99 98.0 08/18/17 12:00 98.0 84 20 105/63 98 98.0 08/18/17 10:50 97.4 Intake and Output 08/18/17 08/19/17 19:00 07:00 Intake Total 600 ml 480 ml Output Total 400 ml Balance 600 ml 80 ml Intake Oral 600 ml 480 ml Output Urine Total 400 ml # Voids 4 3 # Bowel Movements 2 Laboratory Tests Test 08/18/17 12:15 08/19/17 06:30 Vancomycin Level Trough 10.9 ug/mL (5.0-12.0) White Blood Count 7.0 K/UL (4.8-10.8) Red Blood Count 4.73 M/UL (4.70-6.10) Hemoglobin 14.4 G/DL (14.2-18.0) Hematocrit 42.0 % (42.0-52.0) Mean Corpuscular Volume 89 FL (80-99) Mean Corpuscular Hemoglobin 30.4 PG (27.0-31.0) Mean Corpuscular Hemoglobin Concent 34.2 G/DL (32.0-36.0) Red Cell Distribution Width 12.3 % (11.6-14.8) Platelet Count 296 K/UL (150-450) Mean Platelet Volume 6.5 FL (6.5-10.1) Neutrophils (%) (Auto) 52.7 % (45.0-75.0) Lymphocytes (%) (Auto) 29.3 % (20.0-45.0) Monocytes (%) (Auto) 13.8 % (1.0-10.0) H Eosinophils (%) (Auto) 3.3 % (0.0-3.0) H Basophils (%) (Auto) 0.9 % (0.0-2.0) Sodium Level 137 MMOL/L (136-145) Potassium Level 3.9 MMOL/L (3.5-5.1) Chloride Level 104 MMOL/L (98-107) Carbon Dioxide Level 24 MMOL/L (21-32) Anion Gap 9 mmol/L (5-15) Blood Urea Nitrogen 14 mg/dL (7-18) Creatinine 1.2 MG/DL (0.55-1.30) Estimat Glomerular Filtration Rate > 60 mL/min (>60) Glucose Level 105 MG/DL (74-106) Calcium Level 9.2 MG/DL (8.5-10.1) Height (Feet): 5 Height (Inches): 6.00 Weight (Pounds): 229 Medications Current Medications Medications (Trade) Dose Ordered Sig/Shoaib Route PRN Reason Start Time Stop Time Status Last Admin Dose Admin Acetaminophen (Tylenol) 650 mg Q6H PRN ORAL Mild Pain/Temp > 100.5 08/17/17 02:45 09/16/17 02:44 08/18/17 22:51 Doxycycline Hyclate 100 mg/ Dextrose 100 ml @ 100 mls/hr Q12HR IVPB 08/17/17 21:00 08/24/17 20:59 08/18/17 20:33 Morphine Sulfate (Morphine Sulfate) 2 mg Q4H PRN IVP Severe Pain (Pain Scale 7-10) 08/17/17 02:45 08/24/17 02:44 08/19/17 06:12 Piperacillin Sod/ Tazobactam Sod 3.375 gm/Sodium Chloride 110 ml @ 27.5 mls/hr Q8HR IVPB 08/17/17 06:00 08/24/17 05:59 08/19/17 06:09 Sodium Chloride 1,000 ml @ 75 mls/hr [id number] IV 08/17/17 03:00 09/16/17 02:59 08/18/17 06:52 Vancomycin HCl (Vanco rx to dose) 1 ea DAILY PRN MISC Per rx protocol 08/17/17 02:45 09/16/17 02:44 Vancomycin HCl/ Dextrose 250 ml @ 166.667 mls/hr Q12H IVPB 08/18/17 15:00 08/23/17 14:59 08/19/17 03:10 Objective Narrative ultrasound reviewed: likely severe epididymitis resulting in right scrotal abscess Assessment/Plan Status: stable Assessment/Plan 36 yo male with right scrotal abscess. Draining spontaneously. Exam has improved over past 2 days. patient feels well. Recommend continuing 2 week course of abx. Ultrasound appearance likely due to severe infection, had normal right testicle about 15 days ago on prior ultrasound. 1. 2 weeks abx (gram negative coverage) 2. f/u 2 weeks 3. no need for incision and drainage. Aston So M.D. August 19, 2017 10:20
--- NOTE | 2017-08-19 11:29 | General Progress Note ---
Progress Note Progress Note Surgery: no acute events. feels much better. wants to go home. afebrile, HD stable, labs improved. exam improved. edema/swelling of right scrotum improved. still some discharge -urology input -no general surgery intervention planned -can d/c from surgical standpoint Alphonse Arenas August 19, 2017 11:29
[2017-08-19 12:00] VITALS: BP 132/92
[2017-08-19] MEDS ORDERED: CEPHALEXIN500 MG ORAL (12:48)
--- NOTE | 2017-08-19 12:49 | Discharge Instructions ---
Discharge Instructions Discharge Instructions Follow up with: F/u with urology within 2 weeks For Congestive Heart Failure Reminder Report to your physician any weight gain of 5 pounds or more in one week. Marilia Tejada NP August 19, 2017 12:49
[2017-08-19] MEDS ORDERED: BACTRIM DS TAB1 EAC1 ORAL (12:51)
--- NOTE | 2017-08-24 23:39 | Discharge Summary ---
Discharge Summary Hospital Course Date of Admission August 17, 2017 at 00:24 Date of Discharge August 19, 2017 at 13:30 Admitting Diagnosis CELLULITIS HPI Blair Bailey is a 36 year old male who was admitted on August 17, 2017 at 00:24 for Cellulitis This is a 36 y/o male with no significant past medical history presented to the ER for 1 day of pus drainage from right scrotum. Patient states that he has been having progressive scrotal pain, tenderness, erythema, and edema to right scrotal for the last month. Of note, patient had presented to the ED on 07/31 where they had done a testicular ultrasound. This showed a right minimal hydrocele. Patient now presents with fevers, chills and scrotal discharge that serosanguinous. He reports that he is not currently sexually active and that his recent STD/HIV results were negative. Denies any history of STDs/HIV. Denies chest pain, sob, n/v, abdominal pain. Consultations General surgery, Dr. Arenas Urology, Dr. So Infectious Diseases, Dr. Umana Procedures None Hospital Course Patient was admitted for sepsis due to right testicle abscess and was started on IV vancomycin and zosyn. ID general surgery, and urology were consulted. Testicular ultrasound was done, which showed. scrotal cellulitis with abnormal right hemiscrotum. necrosis 2/2 torsion a possibility but doppler flow presence makes it less likely. Tumor as etiology less likely given normal findings on testicular ultrasound 2 weeks prior. Patient also received doxycycline to cover for possible STDs. Patient's WBC trended down and normalized. Patient's wound culture grew E. coli and staph aureus. Per general surgery, no interventions. Per urology, also no further interventions. Patient was given a prescription for antibiotics and advised to follow up with urology within 1-2 weeks. Patient was afebrile and hemodynamicallly stable prior to discharge. Discharge Medications New Medications: Cephalexin* (Keflex*) 500 Mg Capsule 500 MG ORAL EVERY 12 HOURS for 12 Days, #24 CAP 0 Refills Trimethoprim/Sulfamethoxazole 160/800* (Bactrim Ds Tablet*) 1 Each Tablet 1 TAB ORAL TWICE A DAY for 12 Days, #24 TAB Continued Medications: Acetaminophen* (Tylenol Extra Strength*) 500 Mg Tablet 500 MG ORAL Q8H PRN for Prn Headache/Temp > 101, #30 TAB 0 Refills Aripiprazole* (Abilify*) 20 Mg Tablet 30 MG ORAL DAILY, TAB (This prescription has been renewed) Ibuprofen* (Motrin*) 800 Mg Tablet 800 MG ORAL Q6H, #30 TAB Discontinued Medications: Cephalexin* (Keflex*) 500 Mg Capsule 500 MG ORAL Q6H for 7 Days, #28 CAP 0 Refills Discharge Condition Upon Discharge: improving, stable Discharge Disposition Patient was discharged to Home (01) Discharge Diagnoses: (1) Scrotal abscess (2) UTI (urinary tract infection) (3) Sepsis Discharge Instructions Discharge Instructions Follow up with: F/u with urology within 2 weeks Marilia Tejada NP August 24, 2017 23:39
== END 2017-08-19 13:30 | disposition home or self-care (01) | DRG 720 ==
LOC: EMR 23:54 → 4W 08-17 00:24 → EDBEDREQ 08-17 01:13
DX: A41.9 Sepsis, unspecified organism (principal); L03.818 Cellulitis of other sites; N49.2 Inflammatory disorders of scrotum; Z90.49 Acquired absence of other specified parts of digestive tract; Z91.018 Allergy to other foods
CPT/HCPCS: 36415; 76870; 80048; 80202; 85025; 87040; 87070; 87181; 87205; 99285; J2405; J3490

== ENCOUNTER 2017-10-13 20:35 | Emergency (ER) | payer SELFPAY ==
[~2017-10-13] VITALS: Ht 167.6 cm; Wt 108.9 kg
[~2017-10-13 20:35] MED LIST changes: +BACTRIM DS TAB1 EAC1 ORAL; +CEPHALEXIN500 MG ORAL
[2017-10-13 21:15] VITALS: BP 112/78
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
[2017-10-13] MEDS ORDERED: IBUPROFEN600 MG ORAL (22:05)
[2017-10-13 22:06] VITALS: BP 114/74
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
[2017-10-13 22:16] VITALS: BP 114/74
== END 2017-10-13 22:15 | disposition home or self-care (01) ==
LOC: EMR 21:39
DX: S01.81XA Laceration without foreign body of other part of head, initial encounter (principal); S09.90XA Unspecified injury of head, initial encounter; Y00.XXXA Assault by blunt object, initial encounter
CPT/HCPCS: 70450; 99284

== ENCOUNTER 2018-01-02 02:07 | Emergency (ER) | payer MEDICAID ==
[~2018-01-02] VITALS: Ht 160 cm; Wt 104.3 kg
[~2018-01-02 02:07] MED LIST changes: +IBUPROFEN600 MG ORAL
[2018-01-02 02:30] VITALS: BP 141/84
[2018-01-02] MEDS ORDERED: Morphine Sulfate 10mg/ml Inj IVP ONE (02:30)
--- NOTE | 2018-01-02 02:32 | Emergency Room Report ---
History of Present Illness General Chief Complaint: Abdominal Pain Source: Patient Present Illness HPI Is a 37-year-old male with history of abdominal surgery when he was younger. He had a colostomy and reversal. He presents with chief complaint abdominal pain for the last 2 days. Pain is to the left upper quadrant radiating to the groin. He was seen at [facility] yesterday and diagnosed with pyelonephritis after blood work, urine and CT scan. Was prescribed antibiotics and [place]. Pain is getting worse. 10 out of 10. Worse with palpation. No nausea no vomiting. No diarrhea. According to family, he is a heavy drinker. Last drink was 2 days ago. Denies any other complaint. Allergies: Uncoded Allergies: teriyaki sauce (Allergy, Intermediate, hives, 08/17/17) Patient History Past Medical History: see triage record, old chart reviewed, psych hx Past Surgical History: other Pertinent Family History: none Social History: Denies: smoking Immunizations: other Reviewed Nursing Documentation: PMH: Agreed; PSxH: Agreed Nursing Documentation-PMH Hx Cardiac Problems: No Hx Cancer: No Hx Gastrointestinal Problems: No History Of Psychiatric Problem: Yes - depression/ Schizo (no medication) Review of Systems Eye: Denies: eye pain, blurred vision ENT: Denies: ear pain, nose congestion, throat swelling Respiratory: Denies: cough, shortness of breath Cardiovascular: Denies: chest pain, palpitations Gastrointestinal: Reports: abdominal pain; Denies: diarrhea, nausea, vomiting Musculoskeletal: Denies: back pain, joint pain Skin: Denies: rash Neurological: Denies: headache, numbness Endocrine: Denies: increased thirst, increased urine Hematologic/Lymphatic: Denies: easy bruising All Other Systems: negative except mentioned in HPI Physical Exam Vital Signs Date Time Temp Pulse Resp B/P (MAP) Pulse Ox O2 Delivery O2 Flow Rate FiO2 01/02/18 02:09 98.2 96 18 141/84 93 Room Air 98.2 vitals normal Sp02 EP Interpretation: reviewed, normal General Appearance: well appearing, no apparent distress, alert Head: normocephalic, atraumatic Eyes: bilateral eye PERRL, bilateral eye EOMI ENT: hearing grossly normal, normal pharynx Neck: full range of motion, supple, no meningismus Respiratory: chest non-tender, lungs clear, normal breath sounds Cardiovascular #1: regular rate, rhythm, no murmur Gastrointestinal: normal bowel sounds, no mass, no organomegaly, no bruit, non- distended, tenderness - left flank/abdomen tenderness Musculoskeletal: back normal, gait/station normal, normal range of motion Psychiatric: mood/affect normal Skin: warm/dry Medical Decision Making Diagnostic Impression: Primary Impression: CAP (community acquired pneumonia) Qualified Codes: J18.1 - Lobar pneumonia, unspecified organism ER Course patient presents with left upper flank pain. Urine negative. CT scan negative for UTI or kidney stone. He did showed a left lower lobe consolidation suspicious for pneumonia. Patient is currently on Keflex. We'll stop that and switched to Levaquin. No evidence of ACS, PE, dissection to name a few. Pain is better controlled. We'll discharge home. Lab Results Impression labs unremarkable CT/MRI/US Diagnostic Results CT/MRI/US Diagnostic Results : Imaging Test Ordered: CT abdomen and pelvis Impression Read by radiologist. Left lower lobe consolidation suspicious for pneumonia. Last Vital Signs Date Time Temp Pulse Resp B/P (MAP) Pulse Ox O2 Delivery O2 Flow Rate FiO2 01/02/18 02:09 98.2 96 18 141/84 93 Room Air 98.2 Status: improved Disposition: HOME, SELF-CARE Condition: Stable Scripts Levofloxacin* (LEVAQUIN*) 500 Mg Tablet 500 MG ORAL DAILY, #7 TAB Prov: Gio Salvador MD 01/02/18 Oxycodone/Acetaminophen 5-325* (PERCOCET 5-325 MG TABLET*) 1 Each Tablet 1 TAB ORAL Q4H PRN for For Pain, #15 TAB 0 Refills Prov: Gio Salvador MD 01/02/18 Referrals: NOT CHOSEN [facility]/,REFERRING (PCP) Additional Instructions: Follow-up with your DrJhoana in 2 to 3 days for recheck. Return if worse. Gio Salvador MD Jan 02, 2018 02:32
[2018-01-02 02:55] LABS: APPEARANCE,URINE CLEAR; BILIRUBIN, URINE NEGATIVE (NEGATIVE); COLOR,URINE PALE YELLOW; GLUCOSE, URINE (UA) NEGATIVE (NEGATIVE); KETONES,URINE NEGATIVE (NEGATIVE); LEUKOCYTE ESTERASE ,URINE 1+ (NEGATIVE); NITRITE,URINE NEGATIVE (NEGATIVE); PH,URINE 6 (4.5-8.0); PROTEIN,URINE NEGATIVE (NEGATIVE); UROBILINOGEN,URINE NORMAL MG/DL (0.0-1.0)
[2018-01-02 03:06] LABS: BASOPHILS % (AUTO) 0.6 % (0.0-2.0); EOSINOPHILS % (AUTO) 2.1 % (0.0-3.0); HEMATOCRIT 47.7 % (42.0-52.0); HEMOGLOBIN 16.3 G/DL (14.2-18.0); LYMPHOCYTES % (AUTO) 14.9 % (20.0-45.0); MEAN CORPUSCULAR VOLUME 91 FL (80-99); MONOCYTES % (AUTO) 9.7 % (1.0-10.0); NEUTROPHILS % (AUTO) 72.6 % (45.0-75.0); PLATELET COUNT 171 K/UL (150-450); RED BLOOD COUNT 5.23 M/UL (4.70-6.10); RED CELL DISTRIBUTION WIDTH 12.3 % (11.6-14.8); WHITE BLOOD COUNT 11.4 K/UL (4.8-10.8)
[2018-01-02 03:20] LABS: ANION GAP 7 mmol/L (5-15); BLOOD UREA NITROGEN 12 mg/dL (7-18); CALCIUM 8.9 MG/DL (8.5-10.1); CARBON DIOXIDE 27 MMOL/L (21-32); CHLORIDE 104 MMOL/L (98-107); CREATININE 1.1 MG/DL (0.55-1.30); POTASSIUM 4.1 MMOL/L (3.5-5.1); SODIUM 138 MMOL/L (136-145)
[2018-01-02 03:24] LABS: ALANINE AMINOTRANSFERASE 22 U/L (12-78); ALBUMIN 3.4 G/DL (3.4-5.0); ALBUMIN/GLOBULIN RATIO 0.8 (1.0-2.7); ALKALINE PHOSPHATASE 119 U/L (46-116); ASPARTATE AMINO TRANSFERASE 16 U/L (15-37); BILIRUBIN,TOTAL 0.4 MG/DL (0.2-1.0)
[2018-01-02] MEDS ORDERED: PERCOCET 5-3251 EACH ORAL (04:13)
[2018-01-02] MEDS ORDERED: LEVAQUIN500 MG ORAL (04:13)
[2018-01-02] MEDS ORDERED: cefTRIAXone 1 GM in NS 55 ML IVPB ONE (04:15)
[2018-01-02 04:54] VITALS: BP 110/54
[2018-01-02 04:59] VITALS: BP 110/54
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
== END 2018-01-02 05:01 | disposition home or self-care (01) ==
LOC: EMR 02:28
DX: J18.1 Lobar pneumonia, unspecified organism (principal); R10.84 Generalized abdominal pain
CPT/HCPCS: 36415; 74176; 80053; 80307; 81003; 83690; 85025; 96361; 96365; 96366; 99284; J0696; J2270; J2405

== ENCOUNTER 2018-06-18 13:40 | Emergency (ER) | payer MEDICAID ==
[~2018-06-18] VITALS: Ht 167.6 cm; Wt 104.3 kg
[~2018-06-18 13:40] MED LIST changes: +LEVAQUIN500 MG ORAL; +PERCOCET 5-3251 EACH ORAL
[2018-06-18 13:46] VITALS: BP 105/66
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
[2018-06-18] MEDS ORDERED: HYDROcodone/Acetamin 5/325 tab ORAL ONE (14:15)
[2018-06-18] MEDS ORDERED: IBUPROFEN800 MG ORAL (14:19)
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
[2018-06-18 14:28] VITALS: BP 105/66
--- NOTE | 2018-06-18 14:28 | NUR ---
ER DISCHARGE NOTE: Patient is cleared to be discharged per ERMD, pt is aox4, on room air, with stable vital signs. pt was given dc and prescription instructions, pt was able to verbalize understanding, pt id band removed without complications. pt is able to ambulate with steady gait. pt took all belongings.
--- NOTE | 2018-06-18 14:29 | NUR ---
ED Nurse Note: Sandi the staff is going to drive back to the residency.
== END 2018-06-18 14:30 | disposition home or self-care (01) ==
LOC: EMR 14:15
DX: S60.552A Superficial foreign body of left hand, initial encounter (principal); W25.XXXA Contact with sharp glass, initial encounter; Y92.9 Unspecified place or not applicable; Z91.018 Allergy to other foods
CPT/HCPCS: 99282

== ENCOUNTER 2018-10-03 07:27 | Emergency (ER) | payer MEDICAID ==
[~2018-10-03] VITALS: Ht 170.2 cm; Wt 95.3 kg
[2018-10-03 07:38] VITALS: BP 129/79
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
--- NOTE | 2018-10-03 08:15 | NUR ---
ED Nurse Note: PT TAKEN DOWN FOR CT.
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
--- NOTE | 2018-10-03 08:30 | NUR ---
ED Nurse Note: PT CAME BACK FROM CT. WAITING FOR RESULT.
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
[2018-10-03] MEDS ORDERED: IBUPROFEN600 MG ORAL (09:41)
[2018-10-03 10:00] VITALS: BP 144/94
--- NOTE | 2018-10-03 10:00 | NUR ---
Homeless Discharge: Patient is being discharged from medical care. Awake, alert and oriented x4. Provided sandwiches and juice. After care instructions, including referral to community resources (senior care) were given. Patient verbalized understanding of After care instructions. Patient signed patient consent in the medical record for patient destination upon discharge. All medical devices such as ID band were removed. Patient ambulated out with all personal belongings with steady gait. Addendum: 10/03/18 at 1006 by CATHERINE Patient is talking to his friend on the phone.
== END 2018-10-03 10:00 | disposition home or self-care (01) ==
LOC: EMR 08:00
DX: S00.83XA Contusion of other part of head, initial encounter (principal); X99.9XXA Assault by unspecified sharp object, initial encounter; Y92.9 Unspecified place or not applicable
CPT/HCPCS: 70486; 99284

== ENCOUNTER 2018-12-18 17:27 | Emergency (ER) | payer MEDICAID ==
[~2018-12-18] VITALS: Ht 170.2 cm; Wt 77.1 kg
[2018-12-18] MEDS ORDERED: Morphine Sulfate 4mg/ml Inj (IV USE ONLY) IVP ONE (17:45)
[2018-12-18] MEDS ORDERED: Omnipaque-300 100ml vial INJ PRN (17:45)
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
[2018-12-18 18:04] VITALS: BP 130/73
[2018-12-18 18:23] LABS: APPEARANCE,URINE CLEAR; BILIRUBIN, URINE NEGATIVE (NEGATIVE); COLOR,URINE PALE YELLOW; GLUCOSE, URINE (UA) NEGATIVE (NEGATIVE); KETONES,URINE 4+ (NEGATIVE); LEUKOCYTE ESTERASE ,URINE NEGATIVE (NEGATIVE); NITRITE,URINE NEGATIVE (NEGATIVE); PH,URINE 6 (4.5-8.0); PROTEIN,URINE 1+ (NEGATIVE); UROBILINOGEN,URINE NORMAL MG/DL (0.0-1.0)
[2018-12-18 18:24] LABS: BASOPHILS % (AUTO) 0.9 % (0.0-2.0); EOSINOPHILS % (AUTO) 0.9 % (0.0-3.0); HEMATOCRIT 45.9 % (42.0-52.0); HEMOGLOBIN 15.5 G/DL (14.2-18.0); LYMPHOCYTES % (AUTO) 13.8 % (20.0-45.0); MEAN CORPUSCULAR VOLUME 99 FL (80-99); MONOCYTES % (AUTO) 12.5 % (1.0-10.0); PLATELET COUNT 178 K/UL (150-450); RED BLOOD COUNT 4.64 M/UL (4.70-6.10); RED CELL DISTRIBUTION WIDTH 11.7 % (11.6-14.8); WHITE BLOOD COUNT 7.3 K/UL (4.8-10.8)
[2018-12-18 18:29] LABS: ANION GAP 11 mmol/L (5-15); BLOOD UREA NITROGEN 10 mg/dL (7-18); CALCIUM 8.9 MG/DL (8.5-10.1); CARBON DIOXIDE 23 MMOL/L (21-32); CHLORIDE 103 MMOL/L (98-107); CREATININE 1.1 MG/DL (0.55-1.30); POTASSIUM 3.6 MMOL/L (3.5-5.1); SODIUM 137 MMOL/L (136-145)
[2018-12-18 18:34] LABS: ALANINE AMINOTRANSFERASE 37 U/L (12-78); ALBUMIN 3.5 G/DL (3.4-5.0); ALBUMIN/GLOBULIN RATIO 0.9 (1.0-2.7); ALKALINE PHOSPHATASE 122 U/L (46-116); ASPARTATE AMINO TRANSFERASE 30 U/L (15-37)
[2018-12-18 18:55] LABS: BILIRUBIN,TOTAL 0.7 MG/DL (0.2-1.0)
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
[2018-12-18] MEDS ORDERED: DICYCLOMINE HCL10 MG ORAL (20:27)
[2018-12-18] MEDS ORDERED: ZOFRAN4 MG ORAL (20:27)
[2018-12-18 20:43] VITALS: BP 126/80
--- NOTE | 2018-12-19 10:41 | Diagnostic Imaging Report ---
Indication: Chest pain Technique: XRAY Chest 1v Comparison: None Findings: Heart size and mediastinal contours are within normal limits for AP technique. There is no focal airspace consolidation, pneumothorax or pleural effusion. Osseous structures demonstrate no acute abnormality. Impression: No radiographic evidence of acute cardiopulmonary disease.
[2018-12-19] MEDS ORDERED: CYCLOBENZAPRINE10 MG ORAL (19:45)
[2018-12-19] MEDS ORDERED: COLACE100 MG ORAL (19:45)
== END 2018-12-18 20:43 | disposition home or self-care (01) ==
LOC: EMR 17:50
DX: K52.9 Noninfective gastroenteritis and colitis, unspecified (principal); R10.32 Left lower quadrant pain; Z91.018 Allergy to other foods
CPT/HCPCS: 36415; 71045; 74177; 80053; 80307; 81003; 83690; 85025; 93005; 96361; 96374; 96375; J2270; J2405; Q9967; Z7502; 99284

== ENCOUNTER 2018-12-19 18:01 | Emergency (ER) | payer MEDICAID ==
[~2018-12-19] VITALS: Ht 170.2 cm; Wt 92.1 kg
[~2018-12-19 18:01] MED LIST changes: +DICYCLOMINE HCL10 MG ORAL; +ZOFRAN4 MG ORAL
[2018-12-19 18:10] VITALS: BP 112/70
--- NOTE | 2018-12-19 18:10 | NUR ---
ED Nurse Note: pt not found in waiting area.
--- NOTE | 2018-12-19 18:20 | NUR ---
ED Nurse Note: Pt came in due to persistent abd pain. Pt was seen here at [facility] yesterday for same sx and was prescribed with antibiotics. Pt states he is unable to sleep due to pain and it starts from his back. Vomite donce this morning. AAO x4 and ambulatory.
[2018-12-19] MEDS ORDERED: Ketorolac 60mg Inj IM ONE (18:45)
[2018-12-19] MEDS ORDERED: Dicyclomine HCl 10mg/5ml oral soln ORAL ONE (18:45)
--- NOTE | 2018-12-19 19:13 | NUR ---
HAND-OFF: Report given to Anastasiya CORNELL.
--- NOTE | 2018-12-19 19:38 | Emergency Room Report ---
History of Present Illness General Chief Complaint: Abdominal Pain Source: Medical Record Present Illness Allergies: Uncoded Allergies: teriyaki sauce (Allergy, Intermediate, hives, 08/17/17) Patient History Reviewed Nursing Documentation: PMH: Agreed; PSxH: Agreed Nursing Documentation-PMH Past Medical History: No History, Except For Hx Cardiac Problems: No Hx Cancer: No Hx Gastrointestinal Problems: No Physical Exam Vital Signs Date Time Temp Pulse Resp B/P (MAP) Pulse Ox O2 Delivery O2 Flow Rate FiO2 12/19/18 18:10 98.1 97 16 112/70 (84) 96 Room Air Medical Decision Making ER Course Patient presented for abdominal pain. Differential diagnoses included ischemic bowel, appendicitis, perforated viscus, abdominal aortic aneurysm, inferior myocardial infarction, viral gastroenteritis among others.Because patient's complexity imaging studies, and laboratory testing ordered. Laboratory testing showed . Electrolytes Lipase was White blood count was CT of the abdomen pelvis from prior visit showed left lower Abdominal ultrasound showed Patient appears to be stable for close outpatient follow up. Last Vital Signs Date Time Temp Pulse Resp B/P (MAP) Pulse Ox O2 Delivery O2 Flow Rate FiO2 12/19/18 18:17 86 20 Room Air 12/19/18 18:10 98.1 112/70 96 Franco Bacon MD Dec 19, 2018 19:38
[2018-12-19] MEDS ORDERED: COLACE100 MG ORAL (19:45)
[2018-12-19] MEDS ORDERED: CYCLOBENZAPRINE10 MG ORAL (19:45)
--- NOTE | 2018-12-19 20:00 | NUR ---
ED Nurse Note:ER DISCHARGE NOTE: Patient is cleared to be discharged per ERMD, pt is aox4, on room air, with stable vital signs. pt was given dc and prescription instructions, pt was able to verbalize understanding, pt id band removed without complications. pt is able to ambulate with steady gait. pt took all belongings.
[2018-12-19 20:10] VITALS: BP 112/70
== END 2018-12-19 20:10 | disposition home or self-care (01) ==
LOC: EMR 18:47
DX: R10.9 Unspecified abdominal pain (principal); Z91.018 Allergy to other foods
CPT/HCPCS: 96372; Z7502; 99283

== ENCOUNTER 2019-10-01 11:07 | Emergency (ER) | payer MEDICAID ==
[~2019-10-01] VITALS: Ht 167.6 cm; Wt 81.6 kg
[~2019-10-01 11:07] MED LIST changes: +COLACE100 MG ORAL; +CYCLOBENZAPRINE10 MG ORAL
--- NOTE | 2019-10-01 11:30 | NUR ---
ED Nurse Note:pt. came with painful blister in right lower back area
[2019-10-01 11:35] VITALS: BP 144/70
[2019-10-01] MEDS ORDERED: CEPHALEXIN500 MG ORAL (11:36)
[2019-10-01] MEDS ORDERED: BACTRIM-DS1 EA ORAL (11:36)
[2019-10-01] MEDS ORDERED: NORCO 5-325 TA1 EAC1 ORAL (11:36)
--- NOTE | 2019-10-01 11:44 | Emergency Room Report ---
History of Present Illness General Chief Complaint: Lower Back Pain or Injury Source: Patient Present Illness HPI Patient is a 38-year-old male denies any significant past medical history specifically denies any history of diabetes who presents to the ER complaining of right lower lateral back pain for 1 month. He denies any fever or chills. He denies any trauma. Patient denies taking any medications for the pain. He denies any abdominal pain, nausea or vomiting. 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 COVID-19 Screening: Negative COVID-19 COVID-19 Testing Source: DIRECTOR CARD Patient History Reviewed Nursing Documentation: PMH: Agreed; PSxH: Agreed Nursing Documentation-PMH Hx Cardiac Problems: No Hx Cancer: No Hx Gastrointestinal Problems: No Review of Systems All Other Systems: negative except mentioned in HPI Physical Exam Vital Signs Date Time Temp Pulse Resp B/P (MAP) Pulse Ox O2 Delivery O2 Flow Rate FiO2 10/01/19 11:26 98.2 95 20 144/70 (94) 99 Room Air Sp02 EP Interpretation: reviewed, normal General Appearance: no apparent distress, alert, GCS 15, non-toxic Head: normocephalic, atraumatic Eyes: bilateral eye normal inspection, bilateral eye PERRL ENT: hearing grossly normal, normal pharynx, no angioedema, normal voice Neck: full range of motion, supple/symm/no masses Respiratory: chest non-tender, lungs clear, normal breath sounds, speaking full sentences Cardiovascular #1: regular rate, rhythm, no edema Gastrointestinal: normal bowel sounds, non tender, soft, non-distended, no guarding, no rebound Rectal: deferred Musculoskeletal: normal range of motion Neurologic: alert, motor strength/tone normal, oriented x3, sensory intact, responsive, speech normal Psychiatric: no suicidal/homicidal ideation Skin: other - Right lower lateral abscess which is healing mild tenderness to palpation with no erythema and no discharge slight area of fluctuance no midline tenderness Lymphatic: no adenopathy Medical Decision Making Diagnostic Impression: Primary Impression: Abscess ER Course Patient presents with healing abscess. Appears to have spontaneously drained previously. Will treat with Bactrim and Keflex. After discussing risks and benefits of further diagnostics, treatment plans, as well as indications for and risks of admission, the patient is agreeable to being discharged home. I have explained that their evaluation and treatment in the emergency department today is an important step towards them achieving better health but that their evaluation today is not intended to replace further evaluation and treatment by a physician in their local clinic. I have explained that while the current findings suggest no immediate life threatening emergency they will require further evaluation and treatment by a physician of their choice in their area. They understand that it will be necessary for them to review the final reports of their ED visit with their clinic physician. We have reviewed indications for return to the Emergency Department. I have explained that additional time may need to pass and/or additional testing as an outpatient may be necessary before a definitive diagnosis can be made. They tell me they are willing to follow up as instructed within the timeframe I recommend. They appear to understand what we discussed. Additionally they understand that if they are unable to be seen by an outpatient physician they are welcome, and in fact should, return to the Emergency Department for a repeat evaluation. The patient is stable at time of discharge. Last Vital Signs Date Time Temp Pulse Resp B/P (MAP) Pulse Ox O2 Delivery O2 Flow Rate FiO2 10/01/19 11:35 98.2 20 144/70 99 Room Air 10/01/19 11:26 95 Disposition: HOME, SELF-CARE Condition: Stable Scripts Cephalexin* (KEFLEX*) 500 Mg Capsule 500 MG ORAL EVERY 6 HOURS for 10 Days, CAP Prov: Hyun Sood M.D. 10/01/19 Hydrocodone Bit/Acetaminophen 5-325* (NORCO 5-325 TABLET*) 1 Each Tablet 1 TAB ORAL Q6H PRN for FOR PAIN, #12 TAB 0 Refills Prov: Hyun Sood M.D. 10/01/19 Trimethoprim/Sulfamethoxazole (Bactrim Ds Tablet) 1 Each Tablet 1 TAB ORAL TWICE A DAY for 10 Days, #20 TAB Prov: Hyun Sood M.D. 10/01/19 Referrals: [facility] Armaan Romo [facility] Patient Instructions: Abscess, [id number] Additional Instructions: The patient was provided with discharge instructions, notified to follow-up with a primary care doctor and or specialist in the next 24-48 hours, and to return to the ED if they have worsening of their symptoms. Please note that this report is being documented using [employer] technology. This can lead to erroneous entry secondary to incorrect interpretation by the dictating instrument. Hyun Sood M.D. Oct 01, 2019 11:44
[2019-10-01 11:45] VITALS: BP 144/70
[2019-10-01] MEDS ORDERED: Cephalexin 500mg cap ORAL ONE (11:45)
[2019-10-01] MEDS ORDERED: Bactrim-DS 1 tab ORAL ONE (11:45)
[2019-10-01] MEDS ORDERED: HYDROcodone/Acetamin 5/325 tab ORAL ONE (11:45)
--- NOTE | 2019-10-01 11:45 | NUR ---
ED Nurse Note: Pt cleared by health care Provider for discharge. DC instructions/prescription was given and explained to pt and verbalized understanding of teachings. All medical deviecs such as ID band removed. Pt is AAO x4, ambulatory and left with all personal belongings.
== END 2019-10-01 12:00 | disposition home or self-care (01) ==
LOC: EMR 11:41
DX: L02.212 Cutaneous abscess of back [any part, except buttock and flank] (principal); E11.9 Type 2 diabetes mellitus without complications
CPT/HCPCS: 99282

== ENCOUNTER 2020-01-27 14:50 | Emergency (ER) | payer MEDICAID ==
[~2020-01-27] VITALS: Ht 170.2 cm; Wt 104.3 kg
[~2020-01-27 14:50] MED LIST changes: +BACTRIM-DS1 EA ORAL; +NORCO 5-325 TA1 EAC1 ORAL
--- NOTE | 2020-01-27 15:01 | NUR ---
ED Nurse Note: Pt ambulated to ed c/o right lower back pain. pt has skin dry and intact area appears dimpled; tender to touch. pt report having that present for 1-2 months.
[2020-01-27 15:02] VITALS: BP 121/65
[2020-01-27] MEDS ORDERED: Omnipaque-300 100ml vial INJ PRN (15:45)
[2020-01-27] MEDS ORDERED: HYDROcodone/Acetamin 5/325 tab ORAL ONE (15:45)
--- NOTE | 2020-01-27 16:02 | NUR ---
ED Nurse Note: blood drawn sent to lab
[2020-01-27 16:23] LABS: EOSINOPHILS % (AUTO) 2.6 % (0.0-3.0); HEMOGLOBIN 15.3 G/DL (14.2-18.0); LYMPHOCYTES % (AUTO) 27.7 % (20.0-45.0); MEAN CORPUSCULAR VOLUME 97 FL (80-99); MONOCYTES % (AUTO) 9.5 % (1.0-10.0); NEUTROPHILS % (AUTO) 58.2 % (45.0-75.0); PLATELET COUNT 144 K/UL (150-450); RED BLOOD COUNT 4.75 M/UL (4.70-6.10); RED CELL DISTRIBUTION WIDTH 13.8 % (11.6-14.8); WHITE BLOOD COUNT 9.2 K/UL (4.8-10.8)
[2020-01-27 16:30] LABS: ANION GAP 10 mmol/L (5-15); BLOOD UREA NITROGEN 11 mg/dL (7-18); CARBON DIOXIDE 23 MMOL/L (21-32); CHLORIDE 108 MMOL/L (98-107); CREATININE 1.3 MG/DL (0.55-1.30); POTASSIUM 3.9 MMOL/L (3.5-5.1); SODIUM 141 MMOL/L (136-145)
--- NOTE | 2020-01-27 16:46 | NUR ---
ED Nurse Note: Pt taken to CT
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
--- NOTE | 2020-01-27 17:01 | NUR ---
ED Nurse Note: Pt returned from CT
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
[2020-01-27 17:31] VITALS: BP 126/72
[2020-01-27] MEDS ORDERED: TRAMADOL HCL50 MG ORAL (17:31)
[2020-01-27] MEDS ORDERED: LIDODERM700 M1 TOPIC (17:31)
--- NOTE | 2020-01-27 17:31 | NUR ---
ER DISCHARGE NOTE: Patient is cleared to be discharged per ERMD, pt is aox4, on room air, with stable vital signs. pt was given dc and prescription instructions, pt was able to verbalize understanding, pt id band and iv site removed without complications. pt is able to ambulate with steady gait. pt took all belongings.
== END 2020-01-27 17:40 | disposition home or self-care (01) ==
LOC: EMR 15:33
DX: M54.5 Low back pain (principal); Z91.018 Allergy to other foods; M47.816 Spondylosis without myelopathy or radiculopathy, lumbar region; K46.9 Unspecified abdominal hernia without obstruction or gangrene
CPT/HCPCS: 36415; 74177; 80048; 85025; Q9965; Z7502; 99284

== ENCOUNTER 2020-01-29 22:00 | Emergency (ER) | payer MEDICAID ==
[~2020-01-29] VITALS: Ht 170.2 cm; Wt 104.3 kg
[~2020-01-29 22:00] MED LIST changes: +LIDODERM700 M1 TOPIC; +TRAMADOL HCL50 MG ORAL
[2020-01-29] MEDS ORDERED: NORCO 5-325 TA1 EAC1 ORAL (22:24)
[2020-01-29] MEDS ORDERED: CYCLOBENZAPRINE10 MG ORAL (22:24)
[2020-01-29] MEDS ORDERED: Morphine Sulfate 2mg/ml Inj(IV/IM USE ONLY) ONE ×2 (22:24→22:28)
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
[2020-01-29] MEDS ORDERED: Morphine Sulfate 2mg/ml Inj(IV/IM USE ONLY) IVP ONE (22:30)
[2020-01-29 22:36] VITALS: BP 106/68
[2020-01-29 22:38] VITALS: BP 106/68
== END 2020-01-29 22:39 | disposition home or self-care (01) ==
LOC: EMR 22:19
DX: M79.5 Residual foreign body in soft tissue (principal); M54.9 Dorsalgia, unspecified; L90.5 Scar conditions and fibrosis of skin
CPT/HCPCS: 96374; J2270; Z7502; 99282

== ENCOUNTER 2020-05-19 11:54 | Emergency (ER) | payer MEDICAID ==
[~2020-05-19] VITALS: Ht 170.2 cm; Wt 104.3 kg
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
[2020-05-19] MEDS ORDERED: IBUPROFEN600 M1 ORAL (13:30)
[2020-05-19 13:45] VITALS: BP 110/65
--- NOTE | 2020-05-19 13:45 | NUR ---
ED Nurse Note:wrist sling was placed on right wrist Pt cleared by health care Provider for discharge. DC instructions/prescription was given and explained to pt and verbalized understanding of teachings. All medical deviecs such as ID band removed. Pt is AAO x4, ambulatory and left with all personal belongings.
--- NOTE | 2020-05-19 14:56 | Diagnostic Imaging Report ---
Indication: Trauma, pain Technique: 3 views right hand Comparison: none Findings: No acute fracture. No dislocation. Joint spaces are preserved Impression: Negative
--- NOTE | 2020-05-19 14:57 | Diagnostic Imaging Report ---
Clinical Indication:Pain, trauma Technique: 3 views of the right wrist Comparison: None Findings: No acute fracture. No dislocation. The joint spaces are preserved Impression: Negative
== END 2020-05-19 13:45 | disposition home or self-care (01) ==
LOC: EMR 13:32
DX: S63.501A Unspecified sprain of right wrist, initial encounter (principal); S63.074A Dislocation of distal end of right ulna, initial encounter; S60.221A Contusion of right hand, initial encounter; W22.8XXA Striking against or struck by other objects, initial encounter; Y92.9 Unspecified place or not applicable; Z91.018 Allergy to other foods; F17.200 Nicotine dependence, unspecified, uncomplicated; E66.3 Overweight; Z68.36 Body mass index [BMI] 36.0-36.9, adult
CPT/HCPCS: 73110; 73130; Z7502; 99284